=== PATIENT | female | born 1955 | race Caucasian/White ===

== ENCOUNTER → 2018-08-08 | Outpatient (CLI) | payer BC ==
[2015-06-03 11:46] VITALS: BP 136/70
[~2018-08-08] MED LIST: CELE200C PO; GADOBUTROL 10 MMOL/10 ML VIAL IV ONE; LISI1TAB5 PO; LORA0.5T PO; OMEP20CA9 PO; POTA10TA12 PO; PROP10TA PO; SUMA100T4 PO; TIZA4TAB PO; [UNRECOGNIZED DRUG - CODE] OP
--- NOTE | 2018-08-08 13:03 | KCIC ---
MR of the musculoskeletal pelvis HISTORY: Right gluteus bailey muscle mass. TECHNIQUE: Routine pre and postcontrast imaging is obtained. FINDINGS: There is a soft tissue mass in the right gluteus bailey muscle near its medial aspect. The mass measures 5.0 cm wide by 4.7 cm height by 3.9 cm AP. The bulk of the lesion parallels fluid signal on the T1-weighted images. T2-weighted images demonstrate fluid signal as well, but with slight heterogeneity and internal septation. Postcontrast images demonstrate a thin rim of peripheral enhancement as well as thin septal enhancement. There is slightly thicker enhancement at the medial margin of the lesion which measures up to 17 mm in long axis and is compatible with solid component. The lesion demonstrates a slightly fusiform morphology which parallels the muscle fibers, and splits the fat on the medial and lateral margins. There also appears to be slight continuity with a linear structure at the medial tapered margin of the mass, coronal series 4, images 7 and 8. 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 There is no evidence of surrounding soft tissue and intramuscular edema. The visualized regional skeleton demonstrates no bone destruction or acute fracture. No acute bone marrow edema. IMPRESSION: Soft tissue mass within the right gluteus bailey muscle medially. This is most likely a solid mass, with central necrosis. 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 MR is typically not accurate in distinguishing benign from malignant peripheral nerve sheath tumor, but necrosis would seem to favor rapid growth and more aggressive or malignant etiology. Otherwise this is nonspecific, and will likely require tissue sampling for accurate diagnosis. Recommend orthopedic oncology consultation. Electronically signed by: Markie Sue MD (08/08/2018 12:59 PM) [id number]
== END | disposition home or self-care (01) ==
LOC: KCIC MRI 10:17
PROVIDERS: ATTEND Family Medicine
DX: R22.2 Localized swelling, mass and lump, trunk (principal); J45.909 Unspecified asthma, uncomplicated; I10 Essential (primary) hypertension
CPT/HCPCS: 72197; A9585